=== PATIENT | male | born 1975 | race Caucasian/White ===

== ENCOUNTER 2024-03-31 18:35 | Inpatient (IN) | payer BC, OTHER ==
--- OUTSIDE RECORDS SUMMARY | 2024-03-31 18:37 | XMS REPORT | Continuity of Care Document ---
Author Name Unknown Address [address] [facility] [address] thconnect Address [address] [facility] [address] [place] [address] Care Team Providers Care Bond Runner Name Role Phone KULWANT FORBES Attending Clinician Unavailable Payers Payer Name Policy Type Policy Number Effective Date Expirati on Date Source [facility] STATE [id number] 2018 00:00:00 Allergies, Adverse Reactions, Alerts Allergy Name Allergy Type Status Severity Reaction(s) Onset Date Inactive Date Treating Clinician Comments Source NO KNOWN ALLERGIE S Drug Class Active [facility] Encounters Start Date/Time End Date/Time Encounter Type Admission Type Attending Clinicians Care Facility Care Department Encounter ID Source 2021-02-02 13:50:00 2021-02-02 13:50:00 Outpatient KULWANT KOO [facility] [id number] [facility] 2021-01-12 15:30:00 2021-01-12 15:30:[address] [facility] [id number] [facility]
[2024-03-31 19:25] LABS: Arterial Blood Carboxyhemoglob 1.5 % (0-1.5); Blood Gas Oxyhemoglobin 91.8 % (94-97); Blood Gas THB 15.5 g/dl (12-18); Blood O2 Saturation 96.8 % (92-98.5)
--- NOTE | 2024-03-31 19:28 | RAD REPORT ---
EXAM DESCRIPTION: RAD - Chest Single View - 03/31/2024 7:22 pm CLINICAL HISTORY: COUGH COMPARISON: No comparisons FINDINGS: Lines: None. Lungs: No evidence of edema or pneumonia. Pleural: No significant pleural effusions or pneumothorax. Cardiac: The heart size is within normal limits. Mediastinum: Within normal limits. Bones: No acute fractures. Other: None IMPRESSION: No acute cardiopulmonary disease.
[2024-03-31] MEDS ORDERED: NA CHLORIDE 0.9% 2,000 ML ONE (19:51)
[2024-03-31] MEDS ORDERED: ONDANSETRON 4 MG/2 ML VIAL ONE (19:51)
[2024-03-31 20:37] LABS: Absolute Basophils 0.1 K/uL (0-0.5); Absolute Lymphocytes (CBC) 1.6 K/uL (0.7-4.9); Absolute Monocytes 0.4 K/uL (0.1-1.3); Absolute Neutrophil 8.6 K/uL (1.8-8.0); Eosinophils % 0.3 % (0-4.4); Hematocrit 45.8 % (39.6-49.0); Hemoglobin 15.2 g/dL (13.6-17.9); Lymphocytes % 14.8 % (15.3-44.8); MCH 29.6 pg (27.0-35.0); MCHC 33.2 g/dL (32.0-36.0); MPV 12.9 fL (7.6-11.3); Neutrophils % 79.9 % (41.7-73.7); Nucleated Red Blood Cells % 0.4 % (0-0); Platelets 395 thou/uL (152-406); RBC Red Blood Cell Count 5.15 M/uL (4.33-5.43)
[2024-03-31 21:24] LABS: Blood Morphology Comment NOT SEEN (NOT SEEN); Platelet Estimate ADEQ; White Blood Cell Scan OK (OK)
[2024-03-31 23:27] LABS: Sqamous Epithelial None Seen /HPF (None Seen); Urine Bacteria None Seen /HPF (<20); Urine Bilirubin NEGATIVE (Negative); Urine Blood Negative (Negative); Urine Clarity Clear (Clear); Urine Color Colorless (Yellow); Urine Culture Reflex Order NOT NEEDED; Urine Glucose 4+ (Over) (Negative); Urine Ketones 4+ (Over) (Negative); Urine Micro Reflex YN NO BILL MICROSCOPIC; Urine Nitrite NEGATIVE (Negative); Urine Protein NEGATIVE (Negative); Urine RBC <5 /HPF (None Seen); Urine Urobilinogen Normal (Normal); Urine WBC <5 /HPF (<5)
[2024-03-31] MEDS ORDERED: NA CHLORIDE 0.9% 1,000 ML ONE (23:45)
[2024-03-31 23:48] LABS: ALT/SGPT 19 U/L (16-61); AST/SGOT 29 U/L (15-37); Albumin 3.2 g/dL (3.4-5.0); Albumin/Globulin Ratio 0.7 (1.1-1.8); Alkaline Phosphatase 58 U/L (45-117); Anion Gap 36.6 mEq/L (5.0-15.0); BETA HYDROXYBUTYRATE > 4.50 mmol/L (0.02-0.27); BUN Blood Urea Nitrogen 56 mg/dL (7-18); Bicarbonate 15 mEq/L (21-32); Bilirubin Direct < 0.2 mg/dL (0-0.2); Bilirubin Indirect, Calculated 0.5 mg/dL (0.2-0.8); Bilirubin Total 0.7 mg/dL (0.2-1.0); Globulin 4.4 g/dL (2.3-3.5); Glomerular Filtration Rate 36 ml/min (=/>90); Glucose Level 584 mg/dL (74-106); Potassium 4.6 mEq/L (3.5-5.1); Protein, Total 7.6 g/dL (6.4-8.2); Sodium Level 136 mEq/L (136-145); Troponin High Sensitivity 14.1 pg/mL (<58.9)
--- NOTE | 2024-03-31 23:51 | ER ---
Nurse's Notes [facility] Name: Maurizio Mendoza Age: 48 yrs Sex: Male : 1975 Arrival Date: 03/31/2024 Time: 18:35 Bed 19 Private MD: Diagnosis: Diabetes mellitus due to underlying condition with ketoacidosis without coma Presentation: 03/31 18:57 Chief complaint: Spouse and/or significant other states: nausea vomiting increased as6 thirst over the last few days, pt is diabetic and has not checked his sugar today. Coronavirus screen: At this time, the client does not indicate any symptoms associated with coronavirus-19. Ebola Screen: No symptoms or risks identified at this time. Initial Sepsis Screen: Does the patient meet any 2 criteria? HR > 90 bpm. No. Patient's initial sepsis screen is negative. Does the patient have a suspected source of infection? No. Patient's initial sepsis screen is negative. Risk Assessment: Do you want to hurt yourself or someone else? Patient reports no desire to harm self or others. Onset of symptoms was March 28, 2024. 18:57 Method Of Arrival: Wheelchair as6 19:00 Acuity: DAYANA 2 as6 Historical: - Allergies: 18:59 No Known Allergies; as6 - PMHx: 18:59 Diabetes mellitus; Hypertensive disorder; as6 - PSHx: 18:59 Appendectomy; as6 - Immunization history:: Adult Immunizations up to date. - Infectious Disease History:: Denies. - Social history:: Smoking status: Patient denies any tobacco usage or history of. Screenin:[address] [facility] ED Fall Risk Assessment (Adult) History of falling in the last 3 months, tl4 including since admission No falls in past 3 months (0 pts) Confusion or Disorientation No (0 pts) Intoxicated or Sedated No (0 pts) Impaired Gait No (0 pts) Mobility Assist Device Used No (0 pt) Altered Elimination No (0 pt) Score/Fall Risk Level 0 - 2 = Low Risk Oriented to surroundings, Maintained a safe environment, Educated pt \T\ family on fall prevention, incl call for assistance when getting out of bed, Assessed \T\ reinforced patient's understanding of fall precautions. Abuse screen: Denies threats or abuse. Denies injuries from another. Nutritional screening: No deficits noted. Tuberculosis screening: No symptoms or risk factors identified. Assessment: 20:09 General: Appears uncomfortable, Behavior is cooperative. Pain: Complains of pain in tl4 abdomen. Neuro: Level of Consciousness is awake, obeys commands, Oriented to person, place, time, situation, Moves all extremities. Full function Speech is normal. Cardiovascular: Capillary refill < 3 seconds Patient's skin is warm and dry. Respiratory: Airway is patent Respiratory effort is even, unlabored, Respiratory pattern is regular, symmetrical, Breath sounds are clear bilaterally. GI: Pt unable to hold bowels but is also unaware when he has a bowel movement on himself. Per family member this is not normal for him Reports upper abdominal pain, diarrhea, nausea, vomiting. : No signs and/or symptoms were reported regarding the genitourinary system. EENT: No signs and/or symptoms were reported regarding the EENT system. Derm: No signs and/or symptoms reported regarding the dermatologic system. Musculoskeletal: No signs and/or symptoms reported regarding the musculoskeletal system. 23:37 Reassessment: Patient and/or family updated on plan of care and expected duration. Pain tl4 level reassessed. Patient is alert, oriented x 3, equal unlabored respirations, skin warm/dry/pink. Pt still has nausea. at bedside. Will continue to monitor. Vital Signs: 18:57 BP 129 / 75; Pulse 111; Resp 18 S; Temp 97.7(O); Pulse Ox 98% on R/A; Weight 86.18 kg as6 (R); Height 5 ft. 10 in. (R); Pain 0/10; 20:13 BP 144 / 92; Pulse 111; Resp 20; Pulse Ox 98% ; Pain 8/10; tl4 21:30 BP 149 / 71; Pulse 116; Resp 18; Pulse Ox 99% on R/A; tl4 22:30 BP 136 / 83; Pulse 112; Resp 18; Pulse Ox 99% on R/A; tl4 23:37 BP 151 / 86; Pulse 105; Resp 23; Pulse Ox 100% ; tl4 18:57 Body Mass Index 27.26 (86.18 kg, 177.8 cm) as6 18:57 Pain Scale: Adult as6 20:13 Pain Scale: Adult tl4 Vitals: 20:13 Cardiac Rhythm Assessment Regular Sinus tach. tl4 ED Course: 18:40 Patient arrived in ED. mg5 18:59 Samuel Thompson MD is Attending Physician. ec2 19:00 Arm band placed on. as6 19:04 Triage completed. as6 19:24 XRAY Chest (1 view) In Process Unspecified. EDMS 19:38 Owen Gaona, RN is Primary Nurse. tl4 20:02 BHB Sent. rv1 20:02 Basic Metabolic Panel Sent. rv1 20:02 CBC with Diff Sent. rv1 20:02 Troponin HS Sent. rv1 20:09 Basic Metabolic Panel Sent. tl4 20:09 CBC with Diff Sent. tl4 20:09 Troponin HS Sent. tl4 20:09 ABG: VBG instead of ABG Sent. tl4 20:09 BHB Sent. tl4 20:13 Patient has correct armband on for positive identification. Placed in gown. Bed in low tl4 position. Call light in reach. Side rails up X2. Adult w/ patient. Provided Education on: ed process, call parikh. Client placed on continuous cardiac and pulse oximetry monitoring. NIBP monitoring applied. color television console monitor on. Door closed. Noise minimized. Lights dimmed. Moved to private room. Warm blanket given. Pillow given. Cleaned of incontinence. 20:14 No provider procedures requiring assistance completed. Initial lab(s) drawn, by me, tl4 sent to lab. EKG done, by ED staff, reviewed by Samuel Thompson MD. Inserted saline lock: 20 gauge in right antecubital area, using aseptic technique. Blood collected. 22:47 BHB Sent. rv1 22:48 Basic Metabolic Panel Sent. rv1 22:48 Troponin HS Sent. rv1 22:58 BHB Sent. rv1 22:58 Basic Metabolic Panel Sent. rv1 22:58 Troponin HS Sent. rv1 23:34 Liver (Hepatic) Function Sent. tl4 23:51 Solomon Dumont MD is Hospitalizing Provider. ec2 Administered Medications: 20:08 Drug: NS 0.9% IV 2000 ml IV at 1 bolus Per protocol; 1000 mL bolus Route: IV; Rate: 1 tl4 bolus; Site: right antecubital; Delivery: Primary tubing; 23:37 Follow up: Response: No adverse reaction; IV Status: Completed infusion; IV Intake: tl4 2000ml 20:08 Drug: Ondansetron IVP 4 mg IVP once; over 2 minutes Route: IVP; Infused Over: 2 mins; tl4 Site: right antecubital; 22:23 Follow up: Response: No adverse reaction; Nausea is decreased tl4 23:57 Drug: NS 0.9% IV 1000 ml IV at 1 bolus Per protocol; 1000 mL bolus Route: IV; Rate: 1 tl4 bolus; Site: right antecubital; Medication: 20:14 VIS not applicable for this client. tl4 Point of Care Testing: Blood Glucose: 19:04 Blood Glucose: 498 mg/dL; as6 Ranges: Intake: 23:37 IV: 2000ml; Total: 2000ml. tl4 Outcome: 23:51 Decision to Hospitalize by Provider. ec2 04/01 02:05 Admitted to ICU accompanied by nurse, accompanied by tech, family with patient, eb1 Condition: good Instructed on the need for admit, 02:06 Patient left the ED. eb1 Signatures: Dispatcher [employer] EDLizbeth Owens RN RN eb1 Josep Jay RN RN as6 Dianelys Bautista [facility] Rebecca Ruby mg5 Samuel Thompson MD MD ec2 Owen Gaona RN RN tl4 Corrections: (The following items were deleted from the chart) 03/31 23:02 20:02 HEPATIC FUNCTION+C.LAB.BRZ drawn and sent. rv1 EDMS 23:02 20:09 HEPATIC FUNCTION+C.LAB.BRZ drawn and sent. tl4 EDMS 23:02 22:47 HEPATIC FUNCTION+C.LAB.BRZ drawn and sent. rv1 EDMS 23:02 22:58 HEPATIC FUNCTION+C.LAB.BRZ drawn and sent. rv1 EDMS
--- NOTE | 2024-03-31 23:51 | EDPHYS ---
Physician Documentation [facility] Name: Maurizio Mendoza Age: 48 yrs Sex: Male : 1975 Arrival Date: 03/31/2024 Time: 18:35 Bed 19 Private MD: ED Physician Samuel Thompson HPI: 03/31 19:11 This 48 yrs old Male presents to ER via Wheelchair with complaints of Dizziness, ec2 Vomiting. 19:11 Patient arrives today for feeling unwell. Patient reports that he has been experiencing ec2 several days of issues, states he has been feeling generally weak as well as having some bouts of nausea along with vomiting. Patient is a diabetic who is insulin-dependent has not been taking the medication for several days.. Historical: - Allergies: 18:59 No Known Allergies; as6 - PMHx: 18:59 Diabetes mellitus; Hypertensive disorder; as6 - PSHx: 18:59 Appendectomy; as6 - Immunization history:: Adult Immunizations up to date. - Infectious Disease History:: Denies. - Social history:: Smoking status: Patient denies any tobacco usage or history of. ROS: 19:12 Constitutional: as per hpi ec2 Exam: 19:12 Constitutional: GEN: NAD Head: atraumatic Eyes: EOMI Ears: External ears are ec2 normal. CV: Tachycardia LUNGS: no respiratory distress ABD: non-distended, soft, nontender, no guarding, not rigid. SKIN: no evidence of rashes MSK: no evidence of trauma NEURO: moves all extremities equally, cranial nerves II through XII intact, strength intact all 4 extremities. Vital Signs: 18:57 BP 129 / 75; Pulse 111; Resp 18 S; Temp 97.7(O); Pulse Ox 98% on R/A; Weight 86.18 kg as6 (R); Height 5 ft. 10 in. (R); Pain 0/10; 20:13 BP 144 / 92; Pulse 111; Resp 20; Pulse Ox 98% ; Pain 8/10; tl4 21:30 BP 149 / 71; Pulse 116; Resp 18; Pulse Ox 99% on R/A; tl4 22:30 BP 136 / 83; Pulse 112; Resp 18; Pulse Ox 99% on R/A; tl4 23:37 BP 151 / 86; Pulse 105; Resp 23; Pulse Ox 100% ; tl4 18:57 Body Mass Index 27.26 (86.18 kg, 177.8 cm) as6 18:57 Pain Scale: Adult as6 20:13 Pain Scale: Adult tl4 MDM: 19:05 Patient medically screened. ec2 19:12 Data reviewed: vital signs. ED course: Patient arrives today for evaluation of general ec2 weakness along with nausea and vomiting. Examination remarkable for tachycardic individual is otherwise in no acute distress with a reassuring abdominal examination. Will obtain lab work, blood gas as well as urine studies. Currently considering differential diagnoses including processes such as DKA, electrolyte disturbances, anemia, dehydration. Will give the patient crystalloid and further assess.. 20:10 ED course: EKG independently reviewed and interpreted by me, shows sinus tachycardia, ec2 rate 113, no acute ST segment elevations, intervals are nonconcerning. . 20:11 ED course: Chest x-ray independently reviewed and interpreted by me, shows no acute ec2 intrathoracic process. Arterial blood gas obtained, shows pH status of 7.33, hemoglobin of 15.5. Pending rest of labs. . 23:42 ED course: Urine shows ketones and glucose. Blood gas shows pH of 7.33. There is been ec2 some issues with blood draws and recollects, this has been a delay and the rest of the patient's lab work. . 23:50 ED course: Metabolic profile shows marked abnormalities with an anion gap of 37 and ec2 glucose of 584, renal dysfunction with a creatinine of 2.18 and a GFR of 36. I will start the patient on insulin drip to correct the patient's anion gap. I suspect this is driven by the patient's lack of medication compliance with his insulin. . 03/31 19:10 Order name: Basic Metabolic Panel; Complete Time: 23:49 ec2 03/31 19:10 Order name: CBC with Diff; Complete Time: 21:27 ec2 03/31 19:10 Order name: Troponin HS; Complete Time: 23:49 ec2 03/31 19:10 Order name: UAM; Complete Time: 23:42 ec2 03/31 19:11 Order name: ABG: VBG instead of ABG; Complete Time: 23:42 ec2 03/31 19:11 Order name: BHB; Complete Time: 23:49 ec2 03/31 19:17 Order name: Glucose, Ancillary Testing; Complete Time: 19:23 EDMS 03/31 21:24 Order name: CBC Smear Scan; Complete Time: 21:27 EDMS 03/31 23:02 Order name: Liver (Hepatic) Function; Complete Time: 23:49 EDMS 04/01 00:27 Order name: Urinalysis w/ reflexes EDMS 04/01 00:27 Order name: CBC with Automated Diff EDMS 04/01 00:27 Order name: CBC with Automated Diff EDMS 04/01 00:27 Order name: Comprehensive Metabolic Panel EDMS 04/01 00:27 Order name: Comprehensive Metabolic Panel EDMS 04/01 01:17 Order name: Glucose, Ancillary Testing EDMS 03/31 19:10 Order name: XRAY Chest (1 view); Complete Time: 20:11 ec2 03/31 19:10 Order name: Cardiac monitoring; Complete Time: 19:39 ec2 03/31 19:10 Order name: EKG - Nurse/Tech; Complete Time: 20:08 ec2 03/31 19:10 Order name: IV Saline Lock; Complete Time: 20:02 ec2 03/31 19:10 Order name: Labs collected and sent; Complete Time: 20:02 ec2 03/31 19:10 Order name: O2 Per Protocol; Complete Time: 19:39 ec2 03/31 19:10 Order name: O2 Sat Monitoring; Complete Time: 19:39 ec2 03/31 22:33 Order name: Misc. Order: labs; Complete Time: 22:58 ec2 Administered Medications: 20:08 Drug: NS 0.9% IV 2000 ml IV at 1 bolus Per protocol; 1000 mL bolus Route: IV; Rate: 1 tl4 bolus; Site: right antecubital; Delivery: Primary tubing; 23:37 Follow up: Response: No adverse reaction; IV Status: Completed infusion; IV Intake: tl4 2000ml 20:08 Drug: Ondansetron IVP 4 mg IVP once; over 2 minutes Route: IVP; Infused Over: 2 mins; tl4 Site: right antecubital; 22:23 Follow up: Response: No adverse reaction; Nausea is decreased tl4 23:57 Drug: NS 0.9% IV 1000 ml IV at 1 bolus Per protocol; 1000 mL bolus Route: IV; Rate: 1 tl4 bolus; Site: right antecubital; Point of Care Testing: Blood Glucose: 19:04 Blood Glucose: 498 mg/dL; as6 Ranges: Critical Glucose Levels:Adult <50 mg/dl or >400 mg/dl <40 mg/dl or >180 mg/dl Disposition Summary: 03/31/24 23:51 Hospitalization Ordered Notes: Hospitalization Status: Inpatient Admission ec2 Provider: Solomon Dumont ec2 Location: Intensive Care Unit ec2 Condition: Stable ec2 Problem: an acute exacerbation ec2 Symptoms: have improved ec2 Bed/Room Type: Standard ec2 Room Assignment: 7-(04/01/24 00:32) rv1 Diagnosis - Diabetes mellitus due to underlying condition with ketoacidosis without coma ec2 Forms: - Medication Reconciliation Form ec2 - SBAR form ec2 - Leadership Thank You Letter ec2 Critical care time excluding procedures: 23:50 Critical care time: Bedside Care: 30 minutes, Consultation: 5 minutes. Total time: 35 ec2 minutes Signatures: Dispatcher [employer] Josep Pearson RN RN as6 iDanelys Bautista rv1 Samuel Thompson MD MD ec2 Owen Gaona RN RN tl4 Corrections: (The following items were deleted from the chart) 19:10 19:10 BASIC METABOLIC PANEL+C.LAB.BRZ ordered. EDMO EDMS 19:10 19:10 CBC+H.LAB.BRZ ordered. EDMO EDMS 19:10 19:10 Troponin High Sensitivity+C.LAB.BRZ ordered. EDMO EDMS 19:10 19:10 Urinalysis W/Microscopic+U.LAB.BRZ ordered. EDMO EDMS 19:11 19:11 Arterial Blood Gas+RC.LAB.BRZ ordered. EDMO EDMS 19:11 19:11 BETA HYDROXYBUTYRATE+C.LAB.BRZ ordered. EDMO EDMS 19:14 19:12 ED course: Patient arrives today for evaluation of general weakness along with ec2 nausea and vomiting. Examination remarkable for tachycardic individual is otherwise in no acute distress with a reassuring abdominal examination. Will obtain lab work, blood gas as well as urine studies. Evaluate for processes such as. ec2 19:15 19:15 Patient medically screened. ec2 ec2 23:02 19:12 HEPATIC FUNCTION+C.LAB.BRZ ordered. EDMS EDMS 23:34 21:36 Straight Cath ordered. ec2 tl4 04/01 00:32 03/31 23:51 ec2 rv1
[2024-04-01] MEDS ORDERED: INSULIN REGULAR (HUMAN) 100 UNIT/ML ONE (00:07)
[2024-04-01] MEDS ORDERED: NA CHLORIDE 0.9% 100 ML ONE (00:08)
--- NOTE | 2024-04-01 00:21 | P.HP ---
Certification for Inpatient Patient admitted to: Inpatient With expected LOS: >2 Midnights Practitioner: I am a practitioner with admitting privileges, knowledge of patient current condition, hospital course, and medical plan of care. Services: Services provided to patient in accordance with Admission requirements found in Title 42 Section 412.3 of the Code of Federal Regulations Patient History Date of Service: 04/01/24 Reason for admission: DKA History of Present Illness: 48 yrs old Male past medical history hypertension, diabetes, brought to ER with generalized weakness associated with nausea and vomiting. Symptoms has been going on for the last 2 days and has been having generalized weakness and he has been started having nausea and vomiting. Denies any chest pain or shortness of breath. Patient could not tolerate anything by mouth. Has a previous history of DKA. Symptoms very similar to the same episodes before. Denies any fever or chills. No dysuria No nausea vomiting or diarrhea. Patient was assessed in the ER and was found to have DKA and was admitted to the ICU for further management Allergies No Known Allergies Allergy (Unverified 04/01/24 00:20) Home medications list reviewed: Yes Home Medications: Ascorbic Acid [Vitamin C] 500 mg PO 04/01/24 Aspirin Tab [Ketty Aspirin*] 04/01/24 Atorvastatin Calcium 20 mg PO BEDTIME 04/01/24 Bisoprolol/Hydrochlorothiazide [Bisoprolol-Hctz 10-6.25 mg Tab] 2 each PO DAILY 04/01/24 Fenofibrate [Tricor] 145 mg PO DAILY 04/01/24 Insulin Glargine,Hum.rec.anlog [Lantus] 04/01/24 Insulin Lispro [Humalog] 04/01/24 Lisinopril [Zestril] 40 mg PO DAILY 04/01/24 Metformin ER [Glucophage ER] 500 mg PO DAILY 04/01/24 Multivit,Ther Iron,Ca,FA & Min [Centrum Tablet*] 500 04/01/24 Pitman-3/Dha/Epa/Fish Oil [Fish Oil 1,000 mg Softgel] 1 each PO 04/01/24 Sertraline [Zoloft] 25 mg PO DAILY 04/01/24 - Past Medical/Surgical History Past Medical History: Reviewed- Non-Contributory -: Diabetes, hypertension Past Surgical History: Reviewed- Non-Contributory - Family History Family History: Reviewed- Non-Contributory - Social History Smoking Status: Never smoker Review of Systems 10-point ROS is otherwise unremarkable Physical Examination - Vital Signs Temperature: 98.4 F Blood Pressure: 138/76 Pulse: 88 Respirations: 18 Pulse Ox (%): 94 - Physical Exam General: Alert, Oriented x3, Moderate distress HEENT: Atraumatic, Normocephalic Neck: Supple, 2+ carotid pulse no bruit Respiratory: Clear to auscultation bilaterally, Normal air movement Cardiovascular: No edema, Regular rate/rhythm, Normal S1 S2 Capillary refill: <2 Seconds Gastrointestinal: Hypoactive, Soft and benign Musculoskeletal: No clubbing Integumentary: No rashes, No breakdown Neurological: Normal gait, Normal speech, Cranial nerves 3-12 intact, Normal reflexes 2+ Lymphatics: No axilla or inguinal lymphadenopathy - Studies Laboratory Data (last 24 hrs) 03/31/24 03/31/24 03/31/24 22:46 22:46 20:00 WBC 10.80 Hgb 15.2 Hct 45.8 Plt Count 395 Sodium 136 Potassium 4.6 BUN 56 H Creatinine 2.18 H Glucose 584 H* Total Bilirubin Cancelled 0.7 AST Cancelled 29 ALT Cancelled 19 Alkaline Phosphatase Cancelled 58 Assessment and Plan - Problems (Diagnosis) (1) DKA (diabetic ketoacidosis) Current Visit: Yes Status: Acute Plan: Diabetic ketoacidosis Started on insulin drip Admit to ICU Monitor BMP every 4 hours Aggressive hydration Monitor electrolytes and replace accordingly ABG findings noted 7.33/28.5/96 Acute kidney injury Monitor renal parameters Aggressive hydration Possibly prerenal Electrolytes monitor and replace accordingly Diabetes with hyperglycemia 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 Hypertension Antihypertensives titrated Continue home medications and titrate as needed Hyperlipidemia Continue statin GI/DVT prophylaxis Advanced directive full code Discharge Plan: Home Plan to discharge in: Greater than 2 days - Advance Directives Does patient have a Living Will: No Does patient have a Durable POA for Healthcare: No - Code Status/Comfort Care Code Status: Full Code Critical Care: Yes Time Spent Managing Pts Care (In Minutes): 48
[2024-04-01] MEDS ORDERED: ACETAMINOPHEN 325 MG TABLET PO PRN (00:22)
[2024-04-01] MEDS ORDERED: D50W 25 GM/50 ML SYRINGE IV PRN (01:36)
[2024-04-01] MEDS ORDERED: GLUCAGON 1 MG/VIAL IM PRN (01:36)
[2024-04-01] MEDS ORDERED: D10W 125 ML IV PRN (01:41)
[2024-04-01 02:15] VITALS: BMI 24.2
[2024-04-01 04:04] LABS: Absolute Basophils 0.1 K/uL (0-0.5); Absolute Lymphocytes (CBC) 1.6 K/uL (0.7-4.9); Absolute Monocytes 0.5 K/uL (0.1-1.3); Absolute Neutrophil 9.7 K/uL (1.8-8.0); Basophils % 0.5 % (0-1.3); Hematocrit 41.8 % (39.6-49.0); Hemoglobin 14.7 g/dL (13.6-17.9); Lymphocytes % 13.8 % (15.3-44.8); MCH 31.5 pg (27.0-35.0); MCHC 35.3 g/dL (32.0-36.0); MCV 89.4 fL (80-100); MPV 12.4 fL (7.6-11.3); Monocytes % 4.6 % (3.3-12.3); Neutrophils % 81.1 % (41.7-73.7); Platelets 325 thou/uL (152-406); RBC Red Blood Cell Count 4.68 M/uL (4.33-5.43); Red Cell Distribution Width 14.1 % (12.1-15.2)
[2024-04-01 05:59] LABS: Albumin 3.1 g/dL (3.4-5.0); Albumin/Globulin Ratio 0.7 (1.1-1.8); Anion Gap 31.8 mEq/L (5.0-15.0); Bilirubin Total 0.7 mg/dL (0.2-1.0); Globulin 4.6 g/dL (2.3-3.5); Phosphorus 2.5 mg/dL (2.5-4.9); Protein, Total 7.7 g/dL (6.4-8.2)
[2024-04-01] MEDS: ONDANSETRON 4 MG/2 ML VIAL IV PRN (05:59)
[2024-04-01 06:01] LABS: Magnesium 2.6 mg/dL (1.6-2.4); Potassium 3.8 mEq/L (3.5-5.1)
[2024-04-01] MEDS: NA CHLORIDE 0.9% 1,000 ML IV SCH ×2 (06:31→15:16)
[2024-04-01] MEDS: INSULIN REGULAR, HUMAN 100 UNIT in NA CHLORIDE 0.9% 100 ML IV SCH (09:10)
[2024-04-01] MEDS: ENOXAPARIN 40 MG/0.4 ML SQ SCH (09:10)
[2024-04-01] MEDS: POTASSIUM PHOS IN 0.9 % NACL 15 MMOL/250 ML BAG IV ONE (09:11)
[2024-04-01] MEDS ORDERED: ALBUMIN HUMAN 25% 200 ML IV SCH (11:00)
[2024-04-01 14:01] LABS: Albumin 3.2 g/dL (3.4-5.0); Albumin/Globulin Ratio 0.8 (1.1-1.8); Anion Gap 26.3 mEq/L (5.0-15.0); Bilirubin Total 0.5 mg/dL (0.2-1.0); Protein, Total 7.2 g/dL (6.4-8.2)
[2024-04-01 14:02] LABS: Potassium 3.3 mEq/L (3.5-5.1)
[2024-04-01] MEDS: POTASSIUM CL SA 10 MEQ TAB PO ONE (15:32)
--- NOTE | 2024-04-01 19:48 | P.HP ---
Certification for Inpatient Patient admitted to: Inpatient With expected LOS: >2 Midnights Practitioner: I am a practitioner with admitting privileges, knowledge of patient current condition, hospital course, and medical plan of care. Services: Services provided to patient in accordance with Admission requirements found in Title 42 Section 412.3 of the Code of Federal Regulations Patient History Date of Service: 04/01/24 Reason for admission: WEAKNESS, NAUSEA, VOMITING History of Present Illness: MORALES IS A DIABETIC WHO HAS NOT DONE HIS BLOOD TEST I HAVE ORDERED FOR LAST 3 YEARS. HIS INSURANCE COST OF LAB IS HIGH. I OFFERED HIM DISCOUNTED LAB BEFORE ALSO. HE COMES WITH NAUSEA, VOMITING AND WEAKNESS AFTER EATING [place] FOOD. HE HAS DKA BY HIGH ANION GAP AND METABOLIC ACIDOSIS. HE IS ON INSULIN DRIP. HE WAS ADMITTED TO [facility]EN[facility]. THEY CALLED ME TO TAKE OVER THE CARE. Allergies No Known Allergies Allergy (Unverified 04/01/24 00:20) Home medications list reviewed: Yes Home Medications: Ascorbic Acid [Vitamin C] 500 mg PO 04/01/24 Aspirin Tab [Ketty Aspirin*] 04/01/24 Atorvastatin Calcium 20 mg PO BEDTIME 04/01/24 Bisoprolol/Hydrochlorothiazide [Bisoprolol-Hctz 10-6.25 mg Tab] 2 each PO DAILY 04/01/24 Fenofibrate [Tricor] 145 mg PO DAILY 04/01/24 Insulin Glargine,Hum.rec.anlog [Lantus] 04/01/24 Insulin Lispro [Humalog] 04/01/24 Lisinopril [Zestril] 40 mg PO DAILY 04/01/24 Metformin ER [Glucophage ER] 500 mg PO DAILY 04/01/24 Multivit,Ther Iron,Ca,FA & Min [Centrum Tablet*] 500 04/01/24 [place]-3/Dha/Epa/Fish Oil [Fish Oil 1,000 mg Softgel] 1 each PO 04/01/24 Sertraline [Zoloft] 25 mg PO DAILY 04/01/24 - Past Medical/Surgical History Has patient received pneumonia vaccine in the past: No Diabetic: Yes -: Diabetes, hypertension -: Hypertension -: Hyperlipidemia -: Appy - Family History Family History: Reviewed- Non-Contributory - Social History Smoking Status: Never smoker Alcohol use: No CD- Drugs: No Caffeine use: Yes Place of Residence: Home Review of Systems 10-point ROS is otherwise unremarkable Physical Examination - Vital Signs Temperature: 97.8 F Blood Pressure: 137/75 Pulse: 119 Respirations: 16 Pulse Ox (%): 97 - Physical Exam General: Oriented x3, Mild distress, Other (DEHYDRATION) HEENT: Atraumatic, PERRLA, Mucous membr. moist/pink, EOMI, Sclerae nonicteric Neck: Supple, 2+ carotid pulse no bruit, No LAD, Without JVD or thyroid abnormality Respiratory: Clear to auscultation bilaterally, Normal air movement Cardiovascular: Regular rate/rhythm, Normal S1 S2 Gastrointestinal: Normal bowel sounds, No tenderness Musculoskeletal: No tenderness Integumentary: No rashes Neurological: Normal gait, Normal speech, Normal strength at 5/5 x4 extr, Normal tone, Normal affect Lymphatics: No axilla or inguinal lymphadenopathy - Studies Laboratory Data (last 24 hrs) 03/31/24 03/31/24 03/31/24 22:46 22:46 20:00 WBC 10.80 Hgb 15.2 Hct 45.8 Plt Count 395 Sodium 136 Potassium 4.6 BUN 56 H Creatinine 2.18 H Glucose 584 H* Total Bilirubin Cancelled 0.7 AST Cancelled 29 ALT Cancelled 19 Alkaline Phosphatase Cancelled 58 Assessment and Plan - Problems (Diagnosis) (1) DKA (diabetic ketoacidosis) Current Visit: Yes Status: Acute Plan: IV FLUIDS INSULIN DRIP REPLACE K, MAG, PHOS. DAILY LAB HE CLAIMS NOT TO HAVE MISSED ANY DOSE OF INSULIN. CHANGE FROM DRIP TO IV ONLY WHEN GAP RESOLVES. DRIP TO LANTUS WHEN GAP RESOLVES. GLUCOSE CHECK HOURLY. Qualifiers: Diabetes mellitus type: type 2 Diabetes mellitus complication detail: without coma Qualified Code(s): E11.10 - Type 2 diabetes mellitus with ketoacidosis without coma - Advance Directives Does patient have a Living Will: No Does patient have a Durable POA for Healthcare: No
[2024-04-01 20:39] LABS: Albumin 2.8 g/dL (3.4-5.0); Albumin/Globulin Ratio 0.7 (1.1-1.8); Anion Gap 17.7 mEq/L (5.0-15.0); Bilirubin Total 0.6 mg/dL (0.2-1.0); Globulin 4.2 g/dL (2.3-3.5); Thyroid Stimulating Hormone 0.78 uIU/mL (0.358-3.740)
[2024-04-01 20:41] LABS: Potassium 3.7 mEq/L (3.5-5.1)
[2024-04-01] MEDS: D5 0.45 NS 1,000 ML IV SCH (20:46)
[2024-04-02 04:59] LABS: Absolute Lymphocytes (CBC) 1.9 K/uL (0.7-4.9); Absolute Monocytes 0.7 K/uL (0.1-1.3); Basophils % 0.3 % (0-1.3); Hematocrit 36.9 % (39.6-49.0); Hemoglobin 12.8 g/dL (13.6-17.9); Lymphocytes % 19.5 % (15.3-44.8); MCH 30.5 pg (27.0-35.0); MCHC 34.7 g/dL (32.0-36.0); MCV 87.9 fL (80-100); MPV 10.6 fL (7.6-11.3); Monocytes % 7.5 % (3.3-12.3); Neutrophils % 72.7 % (41.7-73.7); Platelets 209 thou/uL (152-406); Red Cell Distribution Width 13.9 % (12.1-15.2)
--- NOTE | 2024-04-02 07:09 | CON ---
Date of Consultation: 04/01/2024 Chief Complaint: Acute kidney injury. History Of Present Illness: Patient came to this hospital on March 31 with BUN 56, creatinine 0.18, glucose up to 584. Patient admitted to ICU with DKA, when he came to the hospital. Nephr ology consultation is requested today and BUN is 49, creatinine 2.2, chloride 97, carbon dioxide 16, anion gap is 31, sodium 142, potassium . The patient has multiple medical problems including history of diabetes , hyperlipidemia. 48-year-old man with past medical history of hypertension and diabetes mellitus type , insu jeanine dependent. He was in the emergency room with generalized body aches associated with nausea. He has had nausea and vomiting 2 days prior to this, he was complaining of generalized weakness, melena, hematemesis. He denies chest pain, shortness of breath. He denies dysuria, hematuria, incomplete _ he was also on metformin. Past Medical History: Diabetes, hypertension, . Family History: No kidney disease in the family. Social History: alcohol. Denies drugs. Physical Examination: Vital Signs: Blood pressure 138/88, respiratory rate 18, SpO2 of 98%. General: The patient is alert, oriented x3, in moderate distress. Complains of generalized body ach es. Eyes: Anicteric sclerae. EOMI. Ears, Nose, and Throat: Oral mucosa moist. No pallor. No bruits. Lungs: breath sounds at bases. Heart: S1, S2. Abdomen: Soft, benign. Extremities: Slight edema present in both legs. No . Impression And Plan: 1.Acute kidney injury secondary to diabetic ketoacidosis. check phosphate as well. Cont inue hydration with fluids, and a blood gas, pH was 7.36, pCO2 25, and pO2 96%. Acute kidney injury. Continue aggressive nonsteroidal anti-inflammatory medicines. 2.Diabetes mellitus, insulin dependent. 3.Hypertension, antihypertensive medications . 4.Acute kidney injury secondary to diabetic ketoacidosis and due to nonsteroidal anti-inflammatory a nd MARIE inhibitor. ALEGRE-2 inhibitor is on hold because of risk of electrolyte abnormalities and worsen ing of the renal function. Plan is to check renal ultrasound and urinalysis for evidence of proteinu jose roberto. 5.Metabolic acidosis. Monitor . EB/MODL Voice ID: [id number] Report ID: [id number]
[2024-04-02] MEDS: ENOXAPARIN 30 MG/0.3 ML SQ SCH (07:44)
[2024-04-02] MEDS: NA CHLORIDE 0.9% 1,000 ML ONE (07:46)
[2024-04-02 07:49] LABS: Albumin 2.7 g/dL (3.4-5.0); Albumin/Globulin Ratio 0.7 (1.1-1.8); Anion Gap 19.7 mEq/L (5.0-15.0); Bilirubin Total 0.5 mg/dL (0.2-1.0); Globulin 3.7 g/dL (2.3-3.5); Phosphorus 1.8 mg/dL (2.5-4.9); Protein, Total 6.4 g/dL (6.4-8.2)
[2024-04-02 07:50] LABS: Magnesium 2.2 mg/dL (1.6-2.4); Potassium 3.7 mEq/L (3.5-5.1)
[2024-04-02] MEDS ORDERED: SODIUM CHLORIDE 0.9% 10ML INJ IV PRN (09:53)
[2024-04-02] MEDS: PROMETHAZINE INJ 25 MG/ML AMP IV PRN (10:27)
[2024-04-02] MEDS: Magnesium Sulfate 2gm IVPB 2 G/50 ML BAG IV ONE (10:28)
--- NOTE | 2024-04-02 11:26 | RAD REPORT ---
EXAM DESCRIPTION: US - Renal Ultrasound-Complete - 04/01/2024 11:28 pm CLINICAL HISTORY: emily COMPARISON: No comparisons TECHNIQUE: Sonographic grayscale and color flow images of the kidneys and bladder were obtained. FINDINGS: Both kidneys are normal in size, shape, and echotexture. The right kidney measures 11.4 cm in length. No hydronephrosis, focal mass, or echogenic calculi. The left kidney measures 12.4 cm in length. No hydronephrosis, focal mass, or echogenic calculi. The urinary bladder is without gross abnormality seen. IMPRESSION: Normal renal and bladder sonogram.
--- NOTE | 2024-04-02 13:08 | P.PN ---
Subjective Date of Service: 04/02/24 Chief Complaint: WEAKNESS, NAUSEA, VOMITING Subjective: No new changes STILL WEAK, GETS NAUSEA AND VOMITING. Review of Systems 10-point ROS is otherwise unremarkable General: Weakness, Malaise Physical Examination - Vital Signs Temperature: 97.5 F Blood Pressure: 108/61 Pulse: 118 Respirations: 19 Pulse Ox (%): 95 - Physical Exam General: Mild distress HEENT: Atraumatic, PERRLA, EOMI Neck: Supple, JVD not distended Respiratory: Clear to auscultation bilaterally, Normal air movement Cardiovascular: Regular rate/rhythm, Normal S1 S2 Gastrointestinal: Soft and benign Musculoskeletal: No tenderness Integumentary: No rashes Neurological: Normal speech, Normal tone, Normal affect Lymphatics: No axilla or inguinal lymphadenopathy - Studies Medications List Reviewed: Yes Assessment And Plan - Current Problems (Diagnosis) (1) DKA (diabetic ketoacidosis) Current Visit: Yes Status: Acute Plan: IV FLUIDS INSULIN DRIP REPLACE K, MAG, PHOS. DAILY LAB HE CLAIMS NOT TO HAVE MISSED ANY DOSE OF INSULIN. CHANGE FROM DRIP TO IV ONLY WHEN GAP RESOLVES. DRIP TO LANTUS WHEN GAP RESOLVES. GLUCOSE CHECK HOURLY. GAP IS 16 TODAY. CONTINUE INSULIN DRIP VOMITING CAN BE FROM DKA NO SIGNS OF ACUTE ABDOMEN. A1C IS 13. 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 Qualifiers: Diabetes mellitus type: type 2 Diabetes mellitus complication detail: without coma Qualified Code(s): E11.10 - Type 2 diabetes mellitus with ketoacidosis without coma
--- NOTE | 2024-04-02 13:39 | PN ---
Date of Progress Note: 04/02/2024 Subjective: The patient was admitted with DKA, acute kidney injury, electrolyte imbalance. The patient still on DKA. Objective: Vital Signs: Blood pressure 108/61, pulse of 108. Chest: Clear to auscultation. Heart: S1, S2. Regular. Abdomen: Soft, mild tenderness. No guarding or rebound. Extremities: No edema. Neuro: Alert. No focality. Laboratory Data: Hemoglobin 12.8, sodium 138, potassium 3.7, bicarb 21, BUN 30, creatinine down to 1.7, calcium 8.8, phosphorus 1.8, magnesium 2.2. Current Medications: The patient on, it includes Lovenox, Tylenol, insulin drip. Assessment And Plan: 1. Acute kidney injury secondary to poor perfusion ATN, secondary to glucose diuresis secondary to uncontrolled diabetes complicated with the acidosis secondary to DKA, on the recovery. We will continue aggressive hydration. We will monitor. 2. Hypokalemia, hypomagnesemia. I will supplement. 3. Hypophosphatemia. We will supplement. 4. Acidosis secondary to DKA. Continue insulin drip. 5. Diabetes, as by Primary. Time spent examining the patient [id number], reviewing data, lab and radiology, placing order, discussing the case with the patient, discussing the case with the steam fitter supervisor maintenance including hospitalist and nursing staff with the dialysis nurse more than 35 minutes FLOR Voice ID: [id number] Report ID: [id number] MTDOneyda
--- NOTE | 2024-04-02 14:17 | EKG ---
Test Date: 2024-03-31 Test Time: 19:58:02 Online Marketing Strategist: TL MEASUREMENT RESULTS: Intervals: Rate: 113 MT: 170 QRSD: 106 QT: 342 QTc: 469 [place]: P: 70 MT: 170 QRS: 69 T: 207 INTERPRETIVE STATEMENTS: Sinus tachycardia Otherwise normal ECG No previous ECG available for comparison Electronically Signed On 04-02-24 14:12:42 CDT by Lars Macario
[2024-04-02] MEDS: KCL 20 MEQ/100 mL IVPB 20 MEQ/100 ML BAG IV SCH (15:30)
[2024-04-02 18:11] LABS: Albumin 2.5 g/dL (3.4-5.0); Albumin/Globulin Ratio 0.7 (1.1-1.8); Alkaline Phosphatase 54 U/L (45-117); Anion Gap 13.3 mEq/L (5.0-15.0); BUN Blood Urea Nitrogen 23 mg/dL (7-18); Bicarbonate 26 mEq/L (21-32); Bilirubin Total 0.6 mg/dL (0.2-1.0); Globulin 3.7 g/dL (2.3-3.5); Glomerular Filtration Rate 53 ml/min (=/>90); Glucose Level 230 mg/dL (74-106); Protein, Total 6.2 g/dL (6.4-8.2); Sodium Level 137 mEq/L (136-145)
[2024-04-02 18:12] LABS: ALT/SGPT < 14 U/L (16-61); AST/SGOT 16 U/L (15-37); Potassium 3.3 mEq/L (3.5-5.1)
--- NOTE | 2024-04-02 21:05 | RAD REPORT ---
EXAM DESCRIPTION: US - Abdomen Exam Limited - 04/02/2024 8:41 pm CLINICAL HISTORY: Abdominal pain. COMPARISON: None. FINDINGS: The gallbladder wall is not thickened. A gallstone is not seen. The biliary tree is normal caliber. IMPRESSION: Unremarkable gallbladder ultrasound.
[2024-04-02 21:34] VITALS: O2SAT 97
[2024-04-03 03:17] LABS: Anion Gap 18.8 mEq/L (5.0-15.0); Magnesium 2.2 mg/dL (1.6-2.4); Potassium 3.8 mEq/L (3.5-5.1)
[2024-04-03 03:20] LABS: Phosphorus 1.3 mg/dL (2.5-4.9)
[2024-04-03] MEDS: POTASSIUM PHOS IN 0.9 % NACL 15 MMOL/250 ML BAG IV ONE (03:52)
[2024-04-03] MEDS: PANTOPRAZOLE 40 MG INJ IVP SCH (07:58)
[2024-04-03] MEDS: ENOXAPARIN 40 MG/0.4 ML SQ SCH (07:58)
[2024-04-03] MEDS: POTASSIUM CL SA 10 MEQ TAB PO ONE ×2 (10:55→20:22)
--- NOTE | 2024-04-03 11:25 | PN ---
Date of Progress Note: 04/03/2024 Subjective: The patient was admitted with DKA, depleted electrolyte, and acute kidney injury. Kidney function has been normalized. The patient is still in DKA, on insulin. Physical Examination: Vital Signs: Blood pressure 141/83, pulse of 107, afebrile. The patient had good urine output of 2300. Laboratory Data: Hemoglobin 12.8. Sodium 137, potassium 3.8, bicarb 23, BUN 19, creatinine 1.5. GFR of 56. Calcium 8.6. Phosphorus 1.3, magnesium 2.2. Current Medications: The patient is on include insulin drip, Lovenox, Tylenol, magnesium oxide, potassium phosphate. Assessment And Plan: 1. Acute kidney injury secondary to prerenal, secondary to glucose diuresis. Continue to recover. We will continue current management, and we will monitor. 2. Hypokalemia and hypophosphatemia with the presence of diabetic ketoacidosis. We will continue aggressive replacement. Our goal for potassium is around 4.5. Agree with potassium phosphate. We will give oral KCl also 40, and we will monitor. 3. Hypomagnesemia, resolved. 4. Diabetic ketoacidosis as by primary. Time spent examining the patient [id number], reviewing data, lab and radiology, placing order, discussing the case with the patient, discussing the case with the team manager including hospitalist and nursing staff with the dialysis nurse more than 35 minutes FLOR Voice ID: [id number] Report ID: [id number] JOANNE
--- NOTE | 2024-04-03 18:14 | P.PN ---
Subjective Date of Service: 04/03/24 Chief Complaint: WEAKNESS, NAUSEA, VOMITING Subjective: Improving STILL WEAK, GETS NAUSEA AND VOMITING. BETTER DAILY. Review of Systems 10-point ROS is otherwise unremarkable General: Weakness Physical Examination - Vital Signs Temperature: 97.6 F Blood Pressure: 139/54 Pulse: 97 Respirations: 18 Pulse Ox (%): 96 - Physical Exam General: Oriented x3, Mild distress HEENT: Atraumatic, PERRLA, EOMI Neck: Supple, JVD not distended Respiratory: Clear to auscultation bilaterally, Normal air movement Cardiovascular: Regular rate/rhythm, Normal S1 S2 Gastrointestinal: Normal bowel sounds, No tenderness Musculoskeletal: No tenderness Integumentary: No rashes Neurological: Normal speech, Normal tone, Normal affect Lymphatics: No axilla or inguinal lymphadenopathy - Studies Medications List Reviewed: Yes Assessment And Plan - Current Problems (Diagnosis) (1) DKA (diabetic ketoacidosis) Current Visit: Yes Status: Acute Plan: IV FLUIDS INSULIN DRIP REPLACE K, MAG, PHOS. DAILY LAB HE CLAIMS NOT TO HAVE MISSED ANY DOSE OF INSULIN. THIS PM GAP IS NORMAL NOW. CHANGE TO ADA DIET WILL START LANTUS IN AM. Qualifiers: Diabetes mellitus type: type 2 Diabetes mellitus complication detail: without coma Qualified Code(s): E11.10 - Type 2 diabetes mellitus with ketoacidosis without coma (2) Low phosphate levels Current Visit: Yes Status: Acute Plan: REPLACE K PHOS PER PROTOCOL (3) Low serum potassium Current Visit: Yes Status: Acute
[2024-04-03 18:26] LABS: Anion Gap 10.5 mEq/L (5.0-15.0)
[2024-04-03 18:30] LABS: Potassium 3.5 mEq/L (3.5-5.1)
[2024-04-03] MEDS: INSULIN GLARGINE 100 UNIT/ML SQ ONE (21:30)
[2024-04-03] MEDS: NACHLORIDE 0.45% 1,000 ML IV SCH (21:45)
[2024-04-03 22:23] LABS: UR PROTEIN 27.2 mg/dL (<11.9); Urine Protein/Creatinine Ratio 0.35 ratio (<0.15)
[2024-04-04 07:40] LABS: Anion Gap 11.5 mEq/L (5.0-15.0); Phosphorus 1.6 mg/dL (2.5-4.9)
[2024-04-04 07:41] LABS: Magnesium 1.8 mg/dL (1.6-2.4); Potassium 3.5 mEq/L (3.5-5.1)
[2024-04-04] MEDS ORDERED: POTASSIUM PHOS IN 0.9 % NACL 15 MMOL/250 ML BAG IV ONE (08:30)
[2024-04-04] MEDS: MAGNESIUM SULFATE 1 gm IVPB 1 GM/100 ML BAG IV ONE (08:51)
[2024-04-04] MEDS: POTASS/SODIUM PHOSPHATE 1 PKT POWD.PACK PO SCH (08:52)
[2024-04-04] MEDS: POTASSIUM 25 MEQ EFFERV TAB PO ONE (08:52)
[2024-04-04] MEDS: INSULIN GLARGINE 100 UNIT/ML SQ ONE (08:52)
[2024-04-04 10:07] VITALS: BP 157/85; TEMP 97.9
--- NOTE | 2024-04-04 22:37 | P.DS ---
Admission Date: 04/01/24 Discharge Date: 04/04/24 Disposition: ROUTINE DISCHARGE Discharge Condition: GOOD Reason for Admission: WEAKNESS, NAUSEA, VOMITING - Problems (1) DKA (diabetic ketoacidosis) Status: Acute Qualifiers: Diabetes mellitus type: type 2 Diabetes mellitus complication detail: without coma Qualified Code(s): E11.10 - Type 2 diabetes mellitus with ketoacidosis without coma (2) Low phosphate levels Status: Acute (3) Low serum potassium Status: Acute Brief History of Present Illness: MORALES IS A DIABETIC WHO HAS NOT DONE HIS BLOOD TEST I HAVE ORDERED FOR LAST 3 YEARS. HIS INSURANCE COST OF LAB IS HIGH. I OFFERED HIM DISCOUNTED LAB BEFORE ALSO. HE COMES WITH NAUSEA, VOMITING AND WEAKNESS AFTER EATING [place]EL[place] FOOD. HE HAS DKA BY HIGH ANION GAP AND METABOLIC ACIDOSIS. HE IS ON INSULIN DRIP. HE WAS ADMITTED TO [facility]. THEY CALLED ME TO TAKE OVER THE CARE. HE IS LOT BETTER. HE HAS SOME NAUSEA. HE IS STABLE TO GO HOME. I CALLED IN MEDICINE FOR LANTUS, ZOFRAN AND PROTONIX. HE KNOWS HE HAS TO TAKE INSULIN DAILY OTHERWISE DKA WILL HAPPEN AGAIN. HE HAS TO COME TO MY OFFICE MONTHLY INITIALLY OTHER [place] I WILL NOT BE ABLE TO TAKE CARE OF HIM. Vital Signs/Physical Exam: Temp Pulse Resp BP Pulse Ox 97.9 F 96 H 12 157/85 H 99 04/04/24 08:00 04/04/24 09:00 04/04/24 09:00 04/04/24 09:00 04/04/24 09:00 Laboratory Data at Discharge: WBC 9.60 thou/uL (4.3-10.9) 04/02/24 04:34 Hgb 12.8 g/dL (13.6-17.9) L D 04/02/24 04:34 Hct 36.9 % (39.6-49.0) L 04/02/24 04:34 Plt Count 209 thou/uL (152-406) D 04/02/24 04:34 Sodium 134 mEq/L (136-145) L 04/04/24 07:07 Potassium 3.5 mEq/L (3.5-5.1) 04/04/24 07:07 BUN 12 mg/dL (7-18) 04/04/24 07:07 Creatinine 1.20 mg/dL (0.70-1.30) 04/04/24 07:07 Glucose 201 mg/dL (74-106) H 04/04/24 07:07 Uric Acid 14.0 mg/dL (3.5-7.2) H 04/01/24 11:55 Phosphorus 1.6 mg/dL (2.5-4.9) L 04/04/24 07:07 Magnesium 1.8 mg/dL (1.6-2.4) 04/04/24 07:07 Total Bilirubin 0.6 mg/dL (0.2-1.0) 04/02/24 17:39 AST 16 U/L (15-37) 04/02/24 17:39 ALT < 14 U/L (16-61) L 04/02/24 17:39 Alkaline Phosphatase 54 U/L (45-117) 04/02/24 17:39 Home Medications: Ascorbic Acid [Vitamin C] 500 mg PO 04/01/24 Aspirin Tab [Ketty Aspirin*] 04/01/24 Atorvastatin Calcium 20 mg PO BEDTIME 04/01/24 Bisoprolol/Hydrochlorothiazide [Bisoprolol-Hctz 10-6.25 mg Tab] 2 each PO DAILY 04/01/24 Fenofibrate [Tricor] 145 mg PO DAILY 04/01/24 Insulin Glargine,Hum.rec.anlog [Lantus] 04/01/24 Insulin Lispro [Humalog] 04/01/24 Lisinopril [Zestril] 40 mg PO DAILY 04/01/24 Metformin ER [Glucophage ER] 500 mg PO DAILY 04/01/24 Multivit,Ther Iron,Ca,FA & Min [Centrum Tablet*] 500 04/01/24 [place]-3/Dha/Epa/Fish Oil [Fish Oil 1,000 mg Softgel] 1 each PO 04/01/24 Sertraline [Zoloft] 25 mg PO DAILY 04/01/24 Followup: Nain Ramos MD [Primary Care Provider] -
== END 2024-04-04 10:45 | disposition home or self-care (01) | DRG 637 ==
LOC: ER 18:35 → ERHOLD 04-01 00:22 → 3RD-ICU 04-01 01:32
PROVIDERS: ADMIT Family Medicine; ATTEND Internal Medicine
PROC: 4A033R1 Measurement of Arterial Saturation, Peripheral, Percutaneous Approach (ICD-10-PCS; principal; 2024-04-01)
DX: E11.10 Type 2 diabetes mellitus with ketoacidosis without coma (principal); N17.0 Acute kidney failure with tubular necrosis; E78.5 Hyperlipidemia, unspecified; I10 Essential (primary) hypertension; E86.0 Dehydration; E87.6 Hypokalemia; E83.42 Hypomagnesemia; E83.39 Other disorders of phosphorus metabolism; T38.3X6A Underdosing of insulin and oral hypoglycemic [antidiabetic] drugs, initial encounter; Z79.4 Long term (current) use of insulin; Z79.82 Long term (current) use of aspirin; Z79.84 Long term (current) use of oral hypoglycemic drugs; Z90.49 Acquired absence of other specified parts of digestive tract; Z91.148 Patient's other noncompliance with medication regimen for other reason; Z79.899 Other long term (current) drug therapy
CPT/HCPCS: 36415; 36600; 71045; 76705; 76770; 80048; 80053; 80076; 81001; 82010; 82550; 82570; 82805; 82947; 83036; 83605; 83735; 84100; 84156; 84300; 84443; 84484; 84550; 84681; 85025; 93005; 96361; 96374; 97112; 97116; 97161; 99285; C9113; J1650; J2405; J2550; J3475; J3480; J7030; J7799